=== PATIENT | female | born 1940 | race Caucasian/White ===

== ENCOUNTER 2021-03-08 12:35 | Emergency (ER) | payer MEDICARE ==
[2021-03-08 14:24] LABS: BILIRUBIN Negative (Negative); BLOOD Negative (Negative); CLARITY Clear (Clear); COLOR Yellow (Yellow); GLUCOSE Negative (Negative); KETONE Negative (Negative); LEUKO ESTERASE 2+ (Negative); NITRITE Negative (Negative); SPECIFIC GRAVITY 1.015 (1.001-1.030); UROBILINOGEN 0.2 E.U./dl (0.0-1.0)
[2021-03-08 15:21] LABS: BACTERIA 1+; RBC 0-2 rbc/hpf (0-2); WBC 16-20 wbc/hpf (0-5)
[2021-03-08] MEDS ORDERED: MACROBID100 M1 PO (15:50)
[2021-03-08] MEDS ORDERED: HYDROCODONE-AC1 EAC1 PO (15:50)
[2021-03-08] MEDS ORDERED: PREDNISONE20 M1 PO (15:50)
== END 2021-03-08 16:09 | disposition home or self-care (01) ==
LOC: ED 12:35
PROVIDERS: Physician Assistant
DX: N39.0 Urinary tract infection, site not specified (principal); G89.29 Other chronic pain; M54.9 Dorsalgia, unspecified

== ENCOUNTER 2021-03-15 10:42 | Emergency (ER) | payer MEDICARE ==
[~2021-03-15] VITALS: Ht 165.1 cm; Wt 68.0 kg
[~2021-03-15 10:42] MED LIST: HYDROCODONE-AC1 EAC1 PO; MACROBID100 M1 PO; PREDNISONE20 M1 PO
[2021-03-15 11:53] LABS: BILIRUBIN Negative (Negative); BLOOD Negative (Negative); CLARITY Clear (Clear); COLOR Yellow (Yellow); GLUCOSE Negative (Negative); KETONE Negative (Negative); LEUKO ESTERASE 1+ (Negative); NITRITE Negative (Negative); UROBILINOGEN 0.2 E.U./dl (0.0-1.0)
[2021-03-15 12:15] LABS: BACTERIA 1+; CALCIUM OXALATE CRYSTALS Trace; EPITHELIAL CELLS 0-2
[2021-03-15] MEDS ORDERED: CYCLOBENZAPRINE5 M3 PO (14:10)
== END 2021-03-15 14:00 | disposition home or self-care (01) ==
LOC: ED 10:42
PROVIDERS: Physician Assistant
DX: M62.830 Muscle spasm of back (principal)

== ENCOUNTER 2022-01-01 22:43 | Emergency (ER) | payer MEDICARE ==
[~2022-01-01] VITALS: Ht 165.1 cm; Wt 70.3 kg
[~2022-01-01 22:43] MED LIST changes: +CYCLOBENZAPRINE5 M3 PO
[2022-01-01] MEDS ORDERED: LATANOPROST 0.7.5 ML OP (22:59)
[2022-01-01] MEDS ORDERED: PROTONIX TR40 M1 PO (23:00)
[2022-01-01] MEDS ORDERED: Synthroid,Lev100 MCG PO (23:00)
[2022-01-01 23:47] LABS: BASO % 0.5 % (0.0-1.0); HEMATOCRIT 48.1 % (37.0-47.0); LYMPH # 1.4 10*3/uL (1.3-4.4); LYMPH % 20.8 % (27.0-41.0); MEAN CELL VOLUME 98.2 fl (81.0-99.0); MEAN CORPUSCULAR HGB 31.4 pg (27.0-31.0); MEAN PLATELET VOLUME 10.3 fl (9.6-12.3); MONO # 1.2 10*3/uL (0.1-1.0); MONO % 18.3 % (3.0-9.0); NEUT % 60.1 % (47.0-73.0); PLATELET COUNT AUTOMATED 140 10*3/uL (130-400); RED CELL DISTRI WIDTH 12.7 % (0-14.5); WHITE BLOOD COUNT 6.6 10*3/uL (4.8-10.8)
[2022-01-02 00:07] LABS: ALKALINE PHOSPHATASE 58 U/L (45-117); BUN 23 mg/dl (7-24); CHLORIDE 104 mmol/L (98-107); CREATININE 0.79 mg/dL (0.55-1.02); POTASSIUM 3.8 mmol/L (3.5-5.1); SGOT/AST 20 IU/L (3-35); SGPT/ALT 22 U/L (12-78); SODIUM 136 mmol/L (136-145); TOTAL PROTEIN 7.4 gm/dL (6.4-8.2)
[2022-01-02 01:38] LABS: BILIRUBIN Negative (Negative); BLOOD Negative (Negative); CLARITY Clear (Clear); COLOR Yellow (Yellow); GLUCOSE Negative (Negative); KETONE Trace (Negative); LEUKO ESTERASE 1+ (Negative); NITRITE Negative (Negative); SPECIFIC GRAVITY 1.025 (1.001-1.030)
[2022-01-02 01:50] LABS: BACTERIA TRACE
== END 2022-01-02 00:41 | disposition home or self-care (01) ==
LOC: ED 22:43
PROVIDERS: Emergency Medicine
DX: U07.1 COVID-19 (principal); Z79.899 Other long term (current) drug therapy; Z90.710 Acquired absence of both cervix and uterus

== ENCOUNTER → 2022-02-05 | Outpatient (CLI) | payer MEDICARE ==
[~2022-02-05] MED LIST changes: +LATANOPROST 0.7.5 ML OP; +PROTONIX TR40 M1 PO; +Synthroid,Lev100 MCG PO
[2022-02-05 13:41] LABS: BASO # 0.1 10*3/uL (0.0-0.1); BASO % 1.1 % (0.0-1.0); EOS # 0.1 10*3/uL (0.0-0.4); EOS % 1.7 % (1.0-4.0); HEMATOCRIT 47.9 % (37.0-47.0); LYMPH # 1.6 10*3/uL (1.3-4.4); LYMPH % 25.2 % (27.0-41.0); MEAN CELL VOLUME 100.2 fl (81.0-99.0); MEAN CORPUSCULAR HGB 32.4 pg (27.0-31.0); MEAN CORPUSCULAR HGB CONC 32.4 g/dl (33.0-37.0); MEAN PLATELET VOLUME 9.9 fl (9.6-12.3); MONO # 0.8 10*3/uL (0.1-1.0); MONO % 12.5 % (3.0-9.0); NEUT # 3.7 10*3/uL (2.3-7.9); PLATELET COUNT AUTOMATED 213 10*3/uL (130-400); RED BLOOD COUNT 4.78 10*6/uL (4.10-5.10); RED CELL DISTRI WIDTH 13.1 % (0-14.5); WHITE BLOOD COUNT 6.3 10*3/uL (4.8-10.8)
[2022-02-05 13:57] LABS: ALKALINE PHOSPHATASE 70 U/L (45-117); BUN 15 mg/dl (7-24); CHLORIDE 106 mmol/L (98-107); CREATININE 0.84 mg/dL (0.55-1.02); SGOT/AST 14 IU/L (3-35); SGPT/ALT 21 U/L (12-78); SODIUM 141 mmol/L (136-145); TOTAL PROTEIN 7.6 gm/dL (6.4-8.2)
[2022-02-05 14:07] LABS: BILIRUBIN Negative (Negative); BLOOD Negative (Negative); CLARITY Clear (Clear); COLOR Yellow (Yellow); GLUCOSE Negative (Negative); KETONE Trace (Negative); LEUKO ESTERASE Negative (Negative); NITRITE Negative (Negative); PH 5.5 (4.5-8.0); UROBILINOGEN 0.2 E.U./dl (0.0-1.0)
[2022-02-05 14:18] LABS: BACTERIA 1+; HYALINE CAST 0-2; MUCOUS 1+
[2022-02-05 14:19] LABS: EPITHELIAL CELLS 0-2
== END | disposition home or self-care (01) ==
LOC: LAB 12:49 → CT 13:00
PROVIDERS: ATTEND Urology
DX: K57.90 Diverticulosis of intestine, part unspecified, without perforation or abscess without bleeding (principal); N39.0 Urinary tract infection, site not specified; R32 Unspecified urinary incontinence; K42.9 Umbilical hernia without obstruction or gangrene; Z96.642 Presence of left artificial hip joint

== ENCOUNTER 2022-05-01 12:49 | Emergency (ER) | payer MEDICARE ==
[~2022-05-01] VITALS: Ht 165.1 cm; Wt 70.3 kg
[2022-05-01] MEDS ORDERED: HYDROCODONE-AC1 EAC1 PO (16:10)
== END 2022-05-01 16:56 | disposition home or self-care (01) ==
LOC: ED 12:49
DX: S02.2XXA Fracture of nasal bones, initial encounter for closed fracture (principal); S09.90XA Unspecified injury of head, initial encounter; Z90.710 Acquired absence of both cervix and uterus; Z88.8 Allergy status to other drugs, medicaments and biological substances; W19.XXXA Unspecified fall, initial encounter; Y93.89 Activity, other specified; Y92.009 Unspecified place in unspecified non-institutional (private) residence as the place of occurrence of the external cause; Y99.8 Other external cause status

== ENCOUNTER → 2022-05-02 | Outpatient (CLI) | payer MEDICARE | END | disposition home or self-care (01) | LOC: ORTHO 02:38 | PROVIDERS: ATTEND Orthopaedic Surgery | DX: M25.462 Effusion, left knee (principal); M85.88 Other specified disorders of bone density and structure, other site; Z96.653 Presence of artificial knee joint, bilateral ==

== ENCOUNTER 2022-11-16 04:13 | Emergency (ER) | payer MEDICARE ==
[~2022-11-16] VITALS: Ht 165.1 cm; Wt 71.2 kg
[2022-11-16] MEDS ORDERED: METHOCARBAMOL500 M1 PO ×2 (04:30→04:40)
[2022-11-16] MEDS ORDERED: NAPROXEN250 MG PO ×2 (04:30→04:40)
== END 2022-11-16 04:48 | disposition home or self-care (01) ==
LOC: ED 04:13
DX: S29.012A Strain of muscle and tendon of back wall of thorax, initial encounter (principal); K21.9 Gastro-esophageal reflux disease without esophagitis; E03.9 Hypothyroidism, unspecified; Z88.8 Allergy status to other drugs, medicaments and biological substances; Z90.710 Acquired absence of both cervix and uterus; X58.XXXA Exposure to other specified factors, initial encounter; Y93.89 Activity, other specified; Y92.009 Unspecified place in unspecified non-institutional (private) residence as the place of occurrence of the external cause; Y99.8 Other external cause status

== ENCOUNTER 2023-01-01 08:05 | Emergency (ER) | payer MEDICARE ==
[~2023-01-01] VITALS: Ht 165.1 cm; Wt 70.3 kg
[~2023-01-01 08:05] MED LIST changes: +METHOCARBAMOL500 M1 PO; +NAPROXEN250 MG PO
[2023-01-01 09:06] LABS: BASO # 0.1 10*3/uL (0.0-0.1); BASO % 0.9 % (0.0-1.0); EOS # 0.1 10*3/uL (0.0-0.4); HEMATOCRIT 45.5 % (37.0-47.0); LYMPH # 1.2 10*3/uL (1.3-4.4); LYMPH % 17.4 % (27.0-41.0); MEAN CELL VOLUME 99.3 fl (81.0-99.0); MEAN CORPUSCULAR HGB 32.5 pg (27.0-31.0); MEAN CORPUSCULAR HGB CONC 32.7 g/dl (33.0-37.0); MEAN PLATELET VOLUME 10.1 fl (9.6-12.3); MONO # 0.6 10*3/uL (0.1-1.0); MONO % 8.7 % (3.0-9.0); NEUT # 4.9 10*3/uL (2.3-7.9); NEUT % 71.7 % (47.0-73.0); PLATELET COUNT AUTOMATED 195 10*3/uL (130-400); RED BLOOD COUNT 4.58 10*6/uL (4.10-5.10); RED CELL DISTRI WIDTH 12.3 % (0-14.5); WHITE BLOOD COUNT 6.8 10*3/uL (4.8-10.8)
[2023-01-01 09:20] LABS: ACT PARTIAL THROMBO TIME 32.8 SECONDS (20.0-32.1)
[2023-01-01 09:37] LABS: BILIRUBIN Negative (Negative); BLOOD Negative (Negative); CLARITY Clear (Clear); COLOR Yellow (Yellow); GLUCOSE Negative (Negative); KETONE Negative (Negative); LEUKO ESTERASE Negative (Negative); NITRITE Negative (Negative); PH 6.5 (4.5-8.0); UROBILINOGEN 0.2 E.U./dl (0.0-1.0)
[2023-01-01 09:44] LABS: ALKALINE PHOSPHATASE 62 U/L (46-116); BUN 14 mg/dl (9-23); CHLORIDE 105 mmol/L (98-107); LIPASE 26 U/L (12-53); SGPT/ALT 12 U/L (10-49); TOTAL PROTEIN 7.3 gm/dL (6.0-8.0)
[2023-01-01 09:48] LABS: BACTERIA 1+; EPITHELIAL CELLS 0-2; WBC 0-2 wbc/hpf (0-5)
[2023-01-01] MEDS ORDERED: CYCLOBENZAPRINE10 MG PO (13:55)
[2023-01-01] MEDS ORDERED: PERCOCET 5-3251 EACH PO (13:55)
== END 2023-01-01 13:35 | disposition home or self-care (01) ==
LOC: ED 08:05
PROVIDERS: Emergency Medicine
DX: S39.012A Strain of muscle, fascia and tendon of lower back, initial encounter (principal); R06.02 Shortness of breath; R51.9 Headache, unspecified; R11.0 Nausea; Z88.8 Allergy status to other drugs, medicaments and biological substances; Z91.048 Other nonmedicinal substance allergy status; Z79.899 Other long term (current) drug therapy; Z90.711 Acquired absence of uterus with remaining cervical stump; X58.XXXA Exposure to other specified factors, initial encounter; Y93.89 Activity, other specified; Y92.89 Other specified places as the place of occurrence of the external cause; Y99.8 Other external cause status

== ENCOUNTER → 2023-07-16 | Outpatient (CLI) | payer MEDICARE ==
[~2023-07-16] MED LIST changes: +CYCLOBENZAPRINE10 MG PO; +PERCOCET 5-3251 EACH PO
== END | disposition home or self-care (01) ==
LOC: RAD 14:54
PROVIDERS: ATTEND Nurse Practitioner
DX: M51.36 Other intervertebral disc degeneration, lumbar region (principal); M48.061 Spinal stenosis, lumbar region without neurogenic claudication; M17.12 Unilateral primary osteoarthritis, left knee; M25.761 Osteophyte, right knee; M25.762 Osteophyte, left knee; M25.862 Other specified joint disorders, left knee; M25.861 Other specified joint disorders, right knee

== ENCOUNTER 2024-10-25 18:01 | Emergency (ER) | payer MEDICARE, OTHER ==
[~2024-10-25] VITALS: Wt 51.3 kg
[~2024-10-25 18:01] MED LIST changes: +ASPIRIN ADULT L81 M2 PO; +BUSPAR5 MG PO; +DOXYCYCLINE HY100 M3 PO; +ESCITALOPRAM OXA5 MG PO; +LATANOPROST2.5 ML OP; +LEVOTHYROXINE112 MCG PO; +MIRTAZAPINE15 M2 PO; +PREDNISONE10 MG PO; +VITAMIN D350 MCG PO
[2024-10-25] MEDS ORDERED: Tdap Vaccine 0.5 ML SYR (Adult Vaccine) IM ONE (18:45)
== END 2024-10-25 19:28 | disposition home or self-care (01) ==
LOC: ED 18:01
DX: S61.411A Laceration without foreign body of right hand, initial encounter (principal); K21.9 Gastro-esophageal reflux disease without esophagitis; E03.9 Hypothyroidism, unspecified; Z91.048 Other nonmedicinal substance allergy status; Z88.8 Allergy status to other drugs, medicaments and biological substances; Z79.899 Other long term (current) drug therapy; Z79.82 Long term (current) use of aspirin; Z90.710 Acquired absence of both cervix and uterus; Z90.49 Acquired absence of other specified parts of digestive tract; Z87.891 Personal history of nicotine dependence; W54.1XXA Struck by dog, initial encounter; Y93.89 Activity, other specified; Y92.89 Other specified places as the place of occurrence of the external cause; Y99.8 Other external cause status